=== PATIENT | female | born 1995 | race Caucasian/White ===

== ENCOUNTER 2018-10-19 17:21 | Emergency (ER) | payer MEDICAID ==
[2018-10-19 18:04] LABS: HCG UR QUAL NEGATIVE
--- NOTE | 2018-10-19 18:06 | ED Physician Documentation ---
PD HPI ABD PAIN - Stated complaint Stated Complaint: AB PX/FEVER/FEM - Chief complaint Chief Complaint: Abd Pain - History obtained from History obtained from: Patient - History of Present Illness Timing - onset: Other (Had normal timed menses and new menses with clitoral sensivity assoc with increased central cramps. Flow was normal. 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 Pain is not severe.) Review of Systems Ten Systems: 10 systems reviewed and negative Constitutional: reports: Fever, Chills GI: reports: Abdominal Pain. 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 - Social History Does the pt smoke?: Yes Smoking Status: Current every day smoker Does the pt drink ETOH?: Yes PD ED PE NORMAL - Vitals Vital signs reviewed: Yes - General General: Alert and oriented X 3, No acute distress - HEENT HEENT: PERRL, EOMI - Neck Neck: Supple, no meningeal sign, No bony TTP - Cardiac Cardiac: RRR, No murmur - Respiratory Respiratory: No respiratory distress, Clear bilaterally - Abdomen Abdomen: Soft, Non tender, Non distended - Female Female : Chlorine Cells Operator present (Ashley Alexis), Other (Mild CMT and symmetric bimanua l TTP with mild mucousy dischg.) - Back Back: No CVA TTP, No spinal TTP - Derm Derm: Normal color, Warm and dry - Extremities Extremities: No edema, No calf tenderness / cord - Neuro Neuro: Alert and oriented X 3, Normal speech - Psych Psych: Normal mood, Normal affect Results - Vitals Vitals: Vital Signs - 24 hr 10/19/18 17:28 Temperature 37.2 C Heart Rate 117 H Respiratory 16 Rate Blood Pressure 121/78 O2 Saturation 99 Oxygen O2 Source Room air - Labs Labs: Microbiology 10/19/18 18:55 Wet Prep - Final Vaginal Laboratory Tests 10/19/18 10/19/18 10/19/18 17:40 17:40 18:25 WBC 18.8 H RBC 4.38 Hgb 13.4 Hct 39.5 MCV 90.2 MCH 30.6 MCHC 33.9 RDW 12.3 Plt Count 308 MPV 9.0 Neut # (Auto) 17.1 H Lymph # (Auto) 0.7 L [place] # (Auto) 0.9 Eos # (Auto) 0.0 Baso # (Auto) 0.0 Absolute Nucleated RBC 0.00 Nucleated RBC % 0.0 Sodium Potassium Chloride Carbon Dioxide Anion Gap BUN Creatinine Estimated GFR (MDRD) Glucose Calcium Total Bilirubin AST ALT Alkaline Phosphatase Total Protein Albumin Globulin Albumin/Globulin Ratio Lipase Urine Color YELLOW Urine Clarity CLEAR Urine pH 7.0 Ur Specific [place] 1.020 1.020 Urine Protein NEGATIVE Urine Glucose (UA) NEGATIVE Urine Ketones NEGATIVE Urine Occult Blood NEGATIVE Urine Nitrite NEGATIVE Urine Bilirubin NEGATIVE Urine Urobilinogen 1 (NORMAL) Ur Leukocyte Esterase TRACE H Urine RBC None Seen Urine WBC 0-3 Ur Squamous Epith Cells MOD Squamous H Urine Bacteria Rare Ur Microscopic Review INDICATED Urine Culture Comments NOT INDICATED Urine HCG, Qual NEGATIVE 10/19/18 18:25 WBC RBC Hgb Hct MCV MCH MCHC RDW Plt Count MPV Neut # (Auto) Lymph # (Auto) [place] # (Auto) Eos # (Auto) Baso # (Auto) Absolute Nucleated RBC Nucleated RBC % Sodium 134 L Potassium 3.4 L Chloride 103 Carbon Dioxide 24 Anion Gap 7.0 BUN 8 Creatinine 0.9 Estimated GFR (MDRD) 76 L Glucose 108 H Calcium 8.9 Total Bilirubin 1.1 H AST 20 ALT 11 Alkaline Phosphatase 51 Total Protein 7.4 Albumin 4.4 Globulin 3.0 Albumin/Globulin Ratio 1.5 Lipase 23 Urine Color Urine Clarity Urine pH Ur Specific [place] Urine Protein Urine Glucose (UA) Urine Ketones Urine Occult Blood Urine Nitrite Urine Bilirubin Urine Urobilinogen Ur Leukocyte Esterase Urine RBC Urine WBC Ur Squamous Epith Cells Urine Bacteria Ur Microscopic Review Urine Culture Comments Urine HCG, Qual - Rads (name of study) Pelvic sono Radiology: EMP read contemporaneously (complex R ov cyst) CT A/P Radiology: EMP read contemporaneously (NAD) PD MEDICAL DECISION MAKING - ED course ED course: 23-year-old woman presents with pelvic pain, fever at home and elevated white blood cell count. Pelvic examination is modestly tender in the midline. I would not necessarily call it an exam consistent with PID but stats the closest clinical syndrome to fit all of the details especially since there is no evidence of appendicitis on CT. She does have a complex right ovarian cyst and follow-up for same was advised. Case was also discussed by phone with the gynecologic senior internet sales consultant, Dr. Whelan who felt that the case was inconsistent with tubo-ovarian abscess and agrees with outpatient care and follow-up for repeat ultrasound. Departure - Departure Disposition: Home, Self Care Clinical Impression: PID (acute pelvic inflammatory disease) Cyst of ovary Qualifiers: Laterality: right Qualified Code(s): N83.201 - Unspecified ovarian cyst, right side Condition: Good Record reviewed to determine appropriate education?: Yes Instructions: ED PID, ED Cyst Ovarian Follow-Up: [facility] [Provider Group] - Within 1 week (for reevaluation and repeat ultrasound) Prescriptions: Doxycycline Hyclate 100 mg PO BID #20 capsule Hydrocodone/Acetaminophen [Hydrocodon-Acetaminophen 5-325] 1 - 2 each PO Q6H PRN #10 tablet PRN Reason: pain
[2018-10-19] MEDS ORDERED: SODIUM CHLORIDE 0.9% 1,000 ML IV ONE (18:10)
[2018-10-19] MEDS ORDERED: MORPHINE 2 MG/ML CARPUJECT IVP STA ×2 (18:13→21:10)
[2018-10-19 18:41] LABS: BASOPHILS % (AUTO) 0.2 %; EOSINOPHILS % (AUTO) 0.1 %; HGB - HEMOGLOBIN 13.4 g/dL (12.0-16.0); LYMPHOCYTES # (AUTO) 0.7 10^3/uL (1.5-3.5); LYMPHOCYTES % (AUTO) 3.7 %; MEAN CORPUSCULAR HEMOGLOBIN 30.6 pg (27.0-31.0); MEAN CORPUSCULAR HGB CONC 33.9 g/dL (32.0-36.0); MEAN CORPUSCULAR VOLUME 90.2 fL (81.0-99.0); MONOCYTES # (AUTO) 0.9 10^3/uL (0.0-1.0); MONOCYTES % (AUTO) 4.8 %; NEUTROPHILS # (AUTO) 17.1 10^3/uL (1.5-6.6); NEUTROPHILS % (AUTO) 91.2 %; PLT - PLATELET COUNT 308 10^3/uL (130-450); RED BLOOD COUNT 4.38 10^6/uL (4.20-5.40); RED CELL DISTRIBUTION WIDTH 12.3 % (12.0-15.0); WHITE BLOOD COUNT 18.8 x10^3/uL (4.8-10.8)
[2018-10-19 18:49] LABS: ALBUMIN 4.4 g/dL (3.2-5.5); ALBUMIN/GLOBULIN RATIO 1.5 (1.0-2.2); BILIRUBIN,TOTAL 1.1 mg/dL (0.2-1.0); CALCIUM 8.9 mg/dL (8.5-10.3); CREATININE 0.9 mg/dL (0.4-1.0); TOTAL PROTEIN 7.4 g/dL (6.7-8.2)
[2018-10-19 18:53] LABS: BILIRUBIN,URINE NEGATIVE (NEGATIVE); GLUCOSE, URINE (UA) NEGATIVE (NEGATIVE); KETONES,URINE (UA) NEGATIVE (NEGATIVE); LEUKOCYTE ESTERASE, URINE TRACE (NEGATIVE); NITRITE,URINE NEGATIVE (NEGATIVE); OCCULT BLOOD,URINE NEGATIVE (NEGATIVE); PROTEIN,URINE NEGATIVE (NEGATIVE); UROBILINOGEN,URINE 1 (NORMAL) E.U./dL (NORMAL)
[2018-10-19 18:54] LABS: CLARITY,URINE CLEAR (CLEAR)
[2018-10-19 19:34] LABS: BACTERIA,URINE Rare /HPF (None Seen); RBC,URINE None Seen /HPF (0-5); SQUAMOUS EPITHELIAL CELL,UR MOD Squamous (<= Few)
[2018-10-19] MEDS ORDERED: IOVERSOL 320 100 ML VIAL IVP ONE (21:37)
--- NOTE | 2018-10-19 21:38 | Ultrasound Report ---
Reason: pelvic pain Procedure Date: 10/19/2018 Accession Number: [id number] / [id number] Procedure: US - Pelvic w/Transvag+Doppler Comp CPT Code: FULL RESULT: EXAM: PELVIC ULTRASOUND EXAM DATE: 10/19/2018 08:28 PM. CLINICAL HISTORY: Pelvic pain. COMPARISON: None. TECHNIQUE: Realtime transabdominal pelvic scan performed to identify the uterus and adnexa and as an overview of other pelvic structures, followed by transvaginal scan to provide greater detail of the uterus and adnexa, with static image documentation. FINDINGS: Uterus: 7.5 x 3.4 x 4.7 cm, volume 62.3 cc. Retroverted position. Normal overall size and echotexture. Masses: None. Endometrium: 5 mm. Normal. Cervix: Unremarkable. Right Ovary: 4.3 x 3.0 x 3.9 cm, volume 26.3 cc. There is a complex cystic mass related to the right ovary measuring 2.5 x 1.9 x 2.1 cm. Normal echotexture and blood flow. Left Ovary: 3.3 x 2.0 x 2.0 cm, volume 7 cc. Normal echotexture and blood flow. Free Fluid: None. Other: None. IMPRESSION: 1. Retroverted uterus. 2. Cystic mass associated with the left ovary. [facility] ADDENDUM: 10/20/18 06:06 Addendum: Correction: The cystic mass is associated with the right ovary.
--- NOTE | 2018-10-19 22:14 | CT Report ---
Reason: IV only, RLQ pain fever Procedure Date: 10/19/2018 Accession Number: [id number] / [id number] Procedure: CT - Abdomen/Pelvis W/ CPT Code: FULL RESULT: EXAM: CT ABDOMEN AND PELVIS EXAM DATE: 10/19/2018 09:47 PM. CLINICAL HISTORY: IV only, RLQ pain fever. COMPARISONS: None. TECHNIQUE: Routine helical CT imaging was performed through the abdomen and pelvis. IV contrast: OPTI 320 100mL. Enteric contrast: No. Reconstructions: Coronal and sagittal. In accordance with CT protocol optimization, one or more of the following dose reduction techniques were utilized for this exam: automated exposure control, adjustment of mA and/or KV based on patient size, or use of iterative reconstructive technique. FINDINGS: Lung Bases: Unremarkable. Liver: Normal. No masses. Gallbladder/Bile Ducts: Unremarkable. Spleen: Normal. Pancreas: Normal. Adrenal Glands: Normal. Kidneys: Normal. No masses or hydronephrosis. Peritoneal Cavity/Bowel: Normal. No free fluid, free air or adenopathy. No masses or acute inflammatory process. The appendix is not clearly visualized, however, there are no inflammatory changes in the right lower quadrant nor contiguous with the cecum. Pelvic Organs: The uterus is slightly retroverted. There is a corpus luteum cyst associated with the right ovary. Vasculature: No aneurysms or other significant abnormality. Bones: No significant abnormality. Other: None. IMPRESSION: 1. No findings to explain clinical symptoms. RAD[facility]
[2018-10-19] MEDS ORDERED: LIDOCAINE 1% 2 ML VIAL SUBQ ONE (22:17)
[2018-10-19] MEDS ORDERED: DOXYCYCLINE 100 MG TABLET PO STA (22:17)
[2018-10-19] MEDS ORDERED: HYDROcod/ACET 5/325 Prepack 4 PO STA (22:17)
[2018-10-19] MEDS ORDERED: cefTRIAXone 250 MG VIAL IM STA (22:17)
[2018-10-19 22:40] VITALS: BP 101/76
[2018-10-20] MEDS ORDERED: IOVERSOL 320 100 ML VIAL IVP ONE (01:17)
== END 2018-10-19 22:56 | disposition home or self-care (01) ==
LOC: ED 17:21
DX: N73.9 Female pelvic inflammatory disease, unspecified (principal); N83.201 Unspecified ovarian cyst, right side; F17.200 Nicotine dependence, unspecified, uncomplicated
CPT/HCPCS: 36415; 74177; 76830; 76856; 80053; 81001; 81025; 83690; 85025; 87210; 87491; 87591; 93975; 96361; 96372; 96374; 96376; 99283; 99284; A9270; Q9967; 81003; 87086